=== PATIENT | male | born 1960 | race African-American/Black ===

== ENCOUNTER 2017-03-04 14:17 | Inpatient (IN) | payer OTHER ==
[~2017-03-04] VITALS: Ht 177.8 cm; Wt 72.6 kg
[2017-03-04] MEDS ORDERED: KETOROLAC TROMETHAMINE 60 MG/2 ML INJ. IM ONE (14:30)
[2017-03-04] MEDS ORDERED: HALOPERIDOL LACTATE 5 MG/ML VIAL. IM ONE (14:30)
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
--- NOTE | 2017-03-04 15:19 | RAD ---
CT of the head without contrast, 03/04/2017: History: Head and neck pain The ventricles are within normal limits in size. There is no shift of the midline structures. There is no evidence of acute intracranial hemorrhage or mass effect. There is mild mucosal thickening in the left maxillary sinus. IMPRESSION: No acute intracranial abnormality is detected. CT of the cervical spine without contrast, 03/04/2017: Noncontrast scans were obtained with multiplanar reconstructions produced. No fracture or dislocation is identified. There are minimal degenerative changes involving scattered facet joints. There are a few minimal scattered marginal spurs. There is mild posterior disc bulging at several levels including C3-4. No high-grade spinal stenosis is evident. There is mild calcific plaquing at the carotid bifurcations. IMPRESSION: 1. Mild multilevel degenerative change. 2. No acute bony abnormality is detected. PQRS Compliance Statement: One or more of the following individualized dose reduction techniques were utilized for this examination: 1. Automated exposure control 2. Adjustment of the mA and/or kV according to patient size 3. Use of iterative reconstruction technique
--- NOTE | 2017-03-04 15:22 | RAD ---
Indication back pain. Axial images through the lumbar spine were obtained and reformatted in the coronal and sagittal planes. A significant soft tissue finding in the visualized abdomen or pelvis is not seen. There are fractures of the left transverse processes of L1-L5 which appear acute. Vertebral height and alignment are well maintained. There is no evidence of acute fracture seen with the lumbar vertebral body segments. There is no significant bony canal narrowing. There is some slight disc bulging of the L4-5 and L5-S1 discs. IMPRESSION: Fractures, likely acute, involving the left transverse processes of L1-L5 PQRS Compliance Statement: One or more of the following individualized dose reduction techniques were utilized for this examination: 1. Automated exposure control 2. Adjustment of the mA and/or kV according to patient size 3. Use of iterative reconstruction technique
[2017-03-04] MEDS ORDERED: IV NORMAL SALINE 1000ML BAG 1,000 ML IV SCH (15:32)
[2017-03-04] MEDS ORDERED: FENTANYL PF 100 MCG/2 ML VIAL. IV PRN (15:45)
[2017-03-04] MEDS ORDERED: ONDANSETRON PF 4 MG/2 ML VIAL. IV ONE (15:45)
[2017-03-04 16:00] LABS: BASO # 0.1 x10^3/uL (0.0-0.2); BASO % 1 % (0-3); EOS % 2 % (0-3); HEMATOCRIT 36.8 % (39.0-53.0); HEMOGLOBIN 12.5 g/dL (13.0-17.5); LYMPH # 1.1 x10^3/uL (1.0-4.8); LYMPH % 19 % (24-48); MEAN CORPUSCULAR HEMOGLOBIN 33 pg (25-35); MEAN CORPUSCULAR HGB CONC 34 g/dL (31-37); MEAN CORPUSCULAR VOLUME 98 fL (79-100); MONO % 6 % (0-9); NEUT % 72 % (31-73); PLATELET COUNT 178 x10^3/uL (140-400); RED BLOOD COUNT 3.77 x10^6/uL (4.30-5.70); RED CELL DISTRIBUTION WIDTH 12.7 % (11.5-14.5); WHITE BLOOD COUNT 5.7 x10^3/uL (4.0-11.0)
[2017-03-04 16:02] LABS: BILIRUBIN,URINE NEGATIVE (NEG); GLUCOSE,URINE NEGATIVE (NEG); NITRITE,URINE NEGATIVE (NEG); PH,URINE 5.5; PROTEIN,URINE NEGATIVE (NEG-TRACE); UROBILINOGEN,URINE 0.2 mg/dL (0.2 mg/dL)
[2017-03-04 16:16] LABS: BACTERIA,URINE 0 /HPF (0-FEW); RBC,URINE 0 /HPF (0-2); WBC,URINE 0 /HPF (0-4)
[2017-03-04 16:23] LABS: CALCIUM 7.8 mg/dL (8.5-10.1); CREATININE 0.8 mg/dL (0.7-1.3); GFR 121.4; POTASSIUM 3.9 mmol/L (3.5-5.1)
[2017-03-04 16:29] LABS: ALBUMIN 3.2 g/dL (3.4-5.0); ALBUMIN/GLOBULIN RATIO 0.9 (1.0-1.7); TOTAL BILIRUBIN 0.3 mg/dL (0.2-1.0); TOTAL PROTEIN 6.6 g/dL (6.4-8.2)
[2017-03-04] MEDS ORDERED: IOHEXOL 300 MG/ML 75 ML VIAL IV ONE (16:30)
[2017-03-04] MEDS ORDERED: CONTRAST GIVEN MC PRN (16:30)
--- NOTE | 2017-03-04 16:38 | RAD ---
Pelvis with left hip, 3 views, 03/04/2017: History: Hip pain No fracture or dislocation is identified. The hip joints are fairly well-maintained. IMPRESSION: No acute pelvic or left hip abnormality is detected. Left femur, 2 views, 03/04/2017: No fracture or bony abnormality is detected. Minimal arterial calcifications are noted. IMPRESSION: No significant left femoral abnormality is identified.
--- NOTE | 2017-03-04 17:52 | RAD ---
PROCEDURE Chest, abdomen and pelvis CT with intravenous contrast; thoracic spine CT without contrast. HISTORY Fall. TECHNIQUE Computed tomographic images of the chest, abdomen and pelvis were obtained following the administration of 75 cc Omnipaque 300 intravenous contrast. Reconstructed images of the thoracic spine were also obtained. One or more of the following individualized dose reduction techniques were utilized for this examination: 1. Automated exposure control; 2. Adjustment of the mA and/or kV according to patient size; 3. Use of iterative reconstruction technique. COMPARISON None. FINDINGS Chest: There is no pneumothorax or plural effusion. There is posterior dependent atelectasis. There is no infiltrate. There is a 3 mm nodular opacity along the right pleural fissure, likely a benign intrafissural lymph node. There is also a 3 mm nodular opacity within the medial left upper lobe and 6 mm and 3 mm pleural-based nodular opacities within the lateral right upper lobe. The heart is normal in size. There is coronary artery atherosclerosis. There is no aortic dissection. No pathologically enlarged lymph node is seen. There are few calcified granulomas. Abdomen pelvis: There may be a tiny cyst within the hepatic dome. There is a 1.3 cm hypodense lesion along the falciform ligament, slightly more rounded and configuration for fatty infiltration and possibly due to a cyst or hemangioma. The gallbladder, pancreas, spleen and adrenal glands are unremarkable. There are several small renal cortical cysts. No abnormally thickened or dilated loop of bowel is seen. The bladder is unremarkable. There are displaced left 1st, 2nd, 3rd, 4th and 5th transverse process fractures. There is slight asymmetric enlargement of the left ileus psoas muscle likely due to a small retroperitoneal hemorrhage. There is mild endplate remodeling and facet arthropathy and there are mild disc bulges at multiple lumbar levels. This results in bilateral foraminal stenosis at L4-L5 and L5-S1. Thoracic spine: There is minimal anterior wedging of T12, likely developmental or degenerative. There is endplate remodeling and Schmorl's node formation at multiple levels. No acute thoracic fracture is seen. There is no suspicious osseous lesion. There is no severe thoracic foraminal or central canal stenosis. IMPRESSION 1. Displaced left 1st, 2nd, 3rd, 4th and 5th transverse process fractures with associated enlarged left ileus psoas muscle with overlying stranding likely due to a small retroperitoneal hemorrhage. 2. Multiple tiny cysts within the kidneys. 3. 1.3 cm rounded hypodense lesion within the the right hepatic lobe along the falciform ligament, not typical in appearance for fatty infiltration. In the absence of known malignancy, this is likely a cyst or hemangioma. There may also be a tiny cyst within the hepatic dome. 4. Multilevel degenerative change within the thoracic and lumbar spine. 5. 3 mm nodular opacity within the left upper lobe and 3 mm and 5 mm pleural-based nodular opacities within the right upper lobe. Followup can be performed according to Fleischner society criteria. In a low risk patient: <4mm- No follow up required. >4-6mm- 12 month follow up, if unchanged, no further follow up. >6-8mm- 6-12 month follow up, then at 18-24 months if no change. >8mm- 3, 9, 24 month follow up or consideration of PET/CT. In a high risk patient: <4mm- 12 month follow up, if unchanged then no further follow up. >4-6mm- 6-12 month follow up, then at 18-24 months if no change. >6-8mm- 3-6 month follow up, then at 9-12 months and 24 months if no change. >8mm- 3, 9, 24 month follow up or consideration of PET/CT. Electronically signed by: Libia Ricci (Mar 04, 2017 17:51:20)
[2017-03-04] MEDS ORDERED: LORAZEPAM 2 MG/ML VIAL. IV PRN ×2 (18:45)
[2017-03-04] MEDS ORDERED: HALOPERIDOL LACTATE 5 MG/ML VIAL. IVP PRN (18:45)
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
[2017-03-04] MEDS ORDERED: ACETAMINOPHEN 325 MG TABLET. PO PRN (19:00)
[2017-03-04] MEDS ORDERED: MORPHINE IR 15 MG TABLET PO PRN (19:00)
[2017-03-04] MEDS ORDERED: KETOROLAC 15 MG/ML VIAL. IV PRN (19:00)
[2017-03-04] MEDS: MULTIVIT INFUSN,ADULT 4,VIT K 10 ML, THIAMINE 100 MG, FOLIC ACID 1 MG in IV NORMAL SALI... IV SCH (19:15)
[2017-03-04 19:22] VITALS: BP 125/83
[2017-03-04] MEDS ORDERED: ENOXAPARIN 40 MG/0.4 ML SYRINGE. SQ SCH (21:00)
[2017-03-04] MEDS: LORAZEPAM 1 MG TABLET. PO SCH (21:00)
[2017-03-04 23:29] VITALS: BP 135/86
[2017-03-05 03:22] VITALS: BP 146/89
[2017-03-05 05:18] LABS: BASO # 0.1 x10^3/uL (0.0-0.2); BASO % 2 % (0-3); EOS % 4 % (0-3); HEMATOCRIT 35.7 % (39.0-53.0); HEMOGLOBIN 12.1 g/dL (13.0-17.5); LYMPH # 1.1 x10^3/uL (1.0-4.8); LYMPH % 26 % (24-48); MEAN CORPUSCULAR HEMOGLOBIN 33 pg (25-35); MEAN CORPUSCULAR HGB CONC 34 g/dL (31-37); MEAN CORPUSCULAR VOLUME 98 fL (79-100); MONO % 7 % (0-9); NEUT % 62 % (31-73); PLATELET COUNT 163 x10^3/uL (140-400); RED BLOOD COUNT 3.64 x10^6/uL (4.30-5.70); RED CELL DISTRIBUTION WIDTH 12.5 % (11.5-14.5); WHITE BLOOD COUNT 4.4 x10^3/uL (4.0-11.0)
[2017-03-05 05:25] LABS: INR 1.2 (0.8-1.1); PROTHROMBIN TIME PATIENT 14.1 SEC (11.7-14.0)
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
[2017-03-05 07:00] VITALS: BP 163/97
[2017-03-05] MEDS: MULTIVIT INFUSN,ADULT 4,VIT K 10 ML, THIAMINE 100 MG, FOLIC ACID 1 MG in IV NORMAL SALI... IV SCH (08:36)
[2017-03-05] MEDS: LORAZEPAM 1 MG TABLET. PO SCH ×2 (08:36→22:18)
[2017-03-05] MEDS ORDERED: HYDROCODONE/APAP 10/325 TABLET. PO PRN (10:15)
[2017-03-05 11:00] VITALS: BP 145/86
[2017-03-05] MEDS ORDERED: ONDANSETRON PF 4 MG/2 ML VIAL. IV PRN (11:00)
[2017-03-05 11:05] LABS: ALBUMIN 2.9 g/dL (3.4-5.0); ALBUMIN/GLOBULIN RATIO 0.9 (1.0-1.7); CREATININE 0.9 mg/dL (0.7-1.3); POTASSIUM 3.6 mmol/L (3.5-5.1); TOTAL BILIRUBIN 0.7 mg/dL (0.2-1.0); TOTAL PROTEIN 6.1 g/dL (6.4-8.2)
[2017-03-05] MEDS: CYCLOBENZAPRINE 10 MG TABLET. PO SCH ×2 (11:32→22:17)
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
--- NOTE | 2017-03-05 13:13 | PDOC ---
PROGRESS NOTES Chief Complaint Chief Complaint Acute etoh intoxication toxic encephalopathy trauma, fall, broken mult transverse processes, no sx one small liver lesion on CT, cyst vs. hemagioma small nodules 3-5mm lung nodules on CT plan: fu with sx , dr. Muse pain control back brace, walker fOr pt PTot ivf ativan prn hope dc tmr History of Present Illness History of Present Illness back pain Vitals Vitals Vital Signs Date Time Temp Pulse Resp B/P Pulse Ox O2 Delivery O2 Flow Rate FiO2 03/05/17 11:00 98.1 56 18 145/86 99 Room Air 98.1 Physical Exam General: Alert, mild distress, moderate distress, Other (confused, ) Heart: Regular rate, Normal S1 Lungs: Clear Abdomen: Normal bowel sounds, Soft Extremities: No clubbing, No cyanosis Skin: No rashes Labs LABS Laboratory Tests Test 03/04/17 15:41 03/05/17 04:20 White Blood Count 5.7x10^3/uL (4.0-11.0) 4.4x10^3/uL (4.0-11.0) Red Blood Count 3.77x10^6/uL (4.30-5.70) 3.64x10^6/uL (4.30-5.70) Hemoglobin 12.5g/dL (13.0-17.5) 12.1g/dL (13.0-17.5) Hematocrit 36.8% (39.0-53.0) 35.7% (39.0-53.0) Mean Corpuscular Volume 98fL (79-100) 98fL (79-100) Mean Corpuscular Hemoglobin 33pg (25-35) 33pg (25-35) Mean Corpuscular Hemoglobin Concent 34g/dL (31-37) 34g/dL (31-37) Red Cell Distribution Width 12.7% (11.5-14.5) 12.5% (11.5-14.5) Platelet Count 178x10^3/uL (140-400) 163x10^3/uL (140-400) Neutrophils (%) (Auto) 72% (31-73) 62% (31-73) Lymphocytes (%) (Auto) 19% (24-48) 26% (24-48) Monocytes (%) (Auto) 6% (0-9) 7% (0-9) Eosinophils (%) (Auto) 2% (0-3) 4% (0-3) Basophils (%) (Auto) 1% (0-3) 2% (0-3) Neutrophils # (Auto) 4.1x10^3uL (1.8-7.7) 2.7x10^3uL (1.8-7.7) Lymphocytes # (Auto) 1.1x10^3/uL (1.0-4.8) 1.1x10^3/uL (1.0-4.8) Monocytes # (Auto) 0.3x10^3/uL (0.0-1.1) 0.3x10^3/uL (0.0-1.1) Eosinophils # (Auto) 0.1x10^3/uL (0.0-0.7) 0.2x10^3/uL (0.0-0.7) Basophils # (Auto) 0.1x10^3/uL (0.0-0.2) 0.1x10^3/uL (0.0-0.2) Urine Collection Type Void Urine Color Yellow Urine Clarity Clear Urine pH 5.5 Urine Specific Baker 1.010 Urine Protein Negativemg/dL (NEG-TRACE) Urine Glucose (UA) Negativemg/dL (NEG) Urine Ketones (Stick) Negativemg/dL (NEG) Urine Blood Negative (NEG) Urine Nitrite Negative (NEG) Urine Bilirubin Negative (NEG) Urine Urobilinogen Dipstick 0.2mg/dL (0.2 mg/dL) Urine Leukocyte Esterase Negative (NEG) Urine RBC 0/HPF (0-2) Urine WBC 0/HPF (0-4) Urine Squamous Epithelial Cells None/LPF Urine Bacteria 0/HPF (0-FEW) Urine Mucus Mod/LPF Sodium Level 141mmol/L (136-145) 143mmol/L (136-145) Potassium Level 3.9mmol/L (3.5-5.1) 3.6mmol/L (3.5-5.1) Chloride Level 105mmol/L (98-107) 109mmol/L (98-107) Carbon Dioxide Level 24mmol/L (21-32) 24mmol/L (21-32) Anion Gap 12 (6-14) 10 (6-14) Blood Urea Nitrogen 14mg/dL (8-26) 15mg/dL (8-26) Creatinine 0.8mg/dL (0.7-1.3) 0.9mg/dL (0.7-1.3) Estimated GFR (Cockcroft-Gault) 121.4 106.0 BUN/Creatinine Ratio 18 (6-20) 17 (6-20) Glucose Level 96mg/dL (70-99) 114mg/dL (70-99) Calcium Level 7.8mg/dL (8.5-10.1) 8.0mg/dL (8.5-10.1) Total Bilirubin 0.3mg/dL (0.2-1.0) 0.7mg/dL (0.2-1.0) Aspartate Amino Transf (AST/SGOT) 69U/L (15-37) 65U/L (15-37) Alanine Aminotransferase (ALT/SGPT) 51U/L (16-63) 45U/L (16-63) Alkaline Phosphatase 74U/L (46-116) 78U/L (46-116) Total Protein 6.6g/dL (6.4-8.2) 6.1g/dL (6.4-8.2) Albumin 3.2g/dL (3.4-5.0) 2.9g/dL (3.4-5.0) Albumin/Globulin Ratio 0.9 (1.0-1.7) 0.9 (1.0-1.7) Ethyl Alcohol Level 318mg/dL (0-10) Prothrombin Time 14.1SEC (11.7-14.0) Prothromb Time International Ratio 1.2 (0.8-1.1) Review of Systems Review of Systems no fever, chills, sob or chest pain Assessment and Plan Assessmemt and Plan Problems Medical Problems: (1) Alcohol intoxication Status: Acute (2) Mild protein malnutrition Status: Acute (3) Multiple transverse process fractures Status: Acute Problems: Comment Review of Relevant I have reviewed the following items connor (where applicable) has been applied. Labs Laboratory Tests Test 03/04/17 15:41 03/05/17 04:20 White Blood Count 5.7x10^3/uL (4.0-11.0) 4.4x10^3/uL (4.0-11.0) Red Blood Count 3.77x10^6/uL (4.30-5.70) 3.64x10^6/uL (4.30-5.70) Hemoglobin 12.5g/dL (13.0-17.5) 12.1g/dL (13.0-17.5) Hematocrit 36.8% (39.0-53.0) 35.7% (39.0-53.0) Mean Corpuscular Volume 98fL (79-100) 98fL (79-100) Mean Corpuscular Hemoglobin 33pg (25-35) 33pg (25-35) Mean Corpuscular Hemoglobin Concent 34g/dL (31-37) 34g/dL (31-37) Red Cell Distribution Width 12.7% (11.5-14.5) 12.5% (11.5-14.5) Platelet Count 178x10^3/uL (140-400) 163x10^3/uL (140-400) Neutrophils (%) (Auto) 72% (31-73) 62% (31-73) Lymphocytes (%) (Auto) 19% (24-48) 26% (24-48) Monocytes (%) (Auto) 6% (0-9) 7% (0-9) Eosinophils (%) (Auto) 2% (0-3) 4% (0-3) Basophils (%) (Auto) 1% (0-3) 2% (0-3) Neutrophils # (Auto) 4.1x10^3uL (1.8-7.7) 2.7x10^3uL (1.8-7.7) Lymphocytes # (Auto) 1.1x10^3/uL (1.0-4.8) 1.1x10^3/uL (1.0-4.8) Monocytes # (Auto) 0.3x10^3/uL (0.0-1.1) 0.3x10^3/uL (0.0-1.1) Eosinophils # (Auto) 0.1x10^3/uL (0.0-0.7) 0.2x10^3/uL (0.0-0.7) Basophils # (Auto) 0.1x10^3/uL (0.0-0.2) 0.1x10^3/uL (0.0-0.2) Urine Collection Type Void Urine Color Yellow Urine Clarity Clear Urine pH 5.5 Urine Specific Baker 1.010 Urine Protein Negativemg/dL (NEG-TRACE) Urine Glucose (UA) Negativemg/dL (NEG) Urine Ketones (Stick) Negativemg/dL (NEG) Urine Blood Negative (NEG) Urine Nitrite Negative (NEG) Urine Bilirubin Negative (NEG) Urine Urobilinogen Dipstick 0.2mg/dL (0.2 mg/dL) Urine Leukocyte Esterase Negative (NEG) Urine RBC 0/HPF (0-2) Urine WBC 0/HPF (0-4) Urine Squamous Epithelial Cells None/LPF Urine Bacteria 0/HPF (0-FEW) Urine Mucus Mod/LPF Sodium Level 141mmol/L (136-145) 143mmol/L (136-145) Potassium Level 3.9mmol/L (3.5-5.1) 3.6mmol/L (3.5-5.1) Chloride Level 105mmol/L (98-107) 109mmol/L (98-107) Carbon Dioxide Level 24mmol/L (21-32) 24mmol/L (21-32) Anion Gap 12 (6-14) 10 (6-14) Blood Urea Nitrogen 14mg/dL (8-26) 15mg/dL (8-26) Creatinine 0.8mg/dL (0.7-1.3) 0.9mg/dL (0.7-1.3) Estimated GFR (Cockcroft-Gault) 121.4 106.0 BUN/Creatinine Ratio 18 (6-20) 17 (6-20) Glucose Level 96mg/dL (70-99) 114mg/dL (70-99) Calcium Level 7.8mg/dL (8.5-10.1) 8.0mg/dL (8.5-10.1) Total Bilirubin 0.3mg/dL (0.2-1.0) 0.7mg/dL (0.2-1.0) Aspartate Amino Transf (AST/SGOT) 69U/L (15-37) 65U/L (15-37) Alanine Aminotransferase (ALT/SGPT) 51U/L (16-63) 45U/L (16-63) Alkaline Phosphatase 74U/L (46-116) 78U/L (46-116) Total Protein 6.6g/dL (6.4-8.2) 6.1g/dL (6.4-8.2) Albumin 3.2g/dL (3.4-5.0) 2.9g/dL (3.4-5.0) Albumin/Globulin Ratio 0.9 (1.0-1.7) 0.9 (1.0-1.7) Ethyl Alcohol Level 318mg/dL (0-10) Prothrombin Time 14.1SEC (11.7-14.0) Prothromb Time International Ratio 1.2 (0.8-1.1) Laboratory Tests Test 03/04/17 15:41 03/05/17 04:20 White Blood Count 5.7x10^3/uL (4.0-11.0) 4.4x10^3/uL (4.0-11.0) Red Blood Count 3.77x10^6/uL (4.30-5.70) 3.64x10^6/uL (4.30-5.70) Hemoglobin 12.5g/dL (13.0-17.5) 12.1g/dL (13.0-17.5) Hematocrit 36.8% (39.0-53.0) 35.7% (39.0-53.0) Mean Corpuscular Volume 98fL (79-100) 98fL (79-100) Mean Corpuscular Hemoglobin 33pg (25-35) 33pg (25-35) Mean Corpuscular Hemoglobin Concent 34g/dL (31-37) 34g/dL (31-37) Red Cell Distribution Width 12.7% (11.5-14.5) 12.5% (11.5-14.5) Platelet Count 178x10^3/uL (140-400) 163x10^3/uL (140-400) Neutrophils (%) (Auto) 72% (31-73) 62% (31-73) Lymphocytes (%) (Auto) 19% (24-48) 26% (24-48) Monocytes (%) (Auto) 6% (0-9) 7% (0-9) Eosinophils (%) (Auto) 2% (0-3) 4% (0-3) Basophils (%) (Auto) 1% (0-3) 2% (0-3) Neutrophils # (Auto) 4.1x10^3uL (1.8-7.7) 2.7x10^3uL (1.8-7.7) Lymphocytes # (Auto) 1.1x10^3/uL (1.0-4.8) 1.1x10^3/uL (1.0-4.8) Monocytes # (Auto) 0.3x10^3/uL (0.0-1.1) 0.3x10^3/uL (0.0-1.1) Eosinophils # (Auto) 0.1x10^3/uL (0.0-0.7) 0.2x10^3/uL (0.0-0.7) Basophils # (Auto) 0.1x10^3/uL (0.0-0.2) 0.1x10^3/uL (0.0-0.2) Urine Collection Type Void Urine Color Yellow Urine Clarity Clear Urine pH 5.5 Urine Specific Baker 1.010 Urine Protein Negativemg/dL (NEG-TRACE) Urine Glucose (UA) Negativemg/dL (NEG) Urine Ketones (Stick) Negativemg/dL (NEG) Urine Blood Negative (NEG) Urine Nitrite Negative (NEG) Urine Bilirubin Negative (NEG) Urine Urobilinogen Dipstick 0.2mg/dL (0.2 mg/dL) Urine Leukocyte Esterase Negative (NEG) Urine RBC 0/HPF (0-2) Urine WBC 0/HPF (0-4) Urine Squamous Epithelial Cells None/LPF Urine Bacteria 0/HPF (0-FEW) Urine Mucus Mod/LPF Sodium Level 141mmol/L (136-145) 143mmol/L (136-145) Potassium Level 3.9mmol/L (3.5-5.1) 3.6mmol/L (3.5-5.1) Chloride Level 105mmol/L (98-107) 109mmol/L (98-107) Carbon Dioxide Level 24mmol/L (21-32) 24mmol/L (21-32) Anion Gap 12 (6-14) 10 (6-14) Blood Urea Nitrogen 14mg/dL (8-26) 15mg/dL (8-26) Creatinine 0.8mg/dL (0.7-1.3) 0.9mg/dL (0.7-1.3) Estimated GFR (Cockcroft-Gault) 121.4 106.0 BUN/Creatinine Ratio 18 (6-20) 17 (6-20) Glucose Level 96mg/dL (70-99) 114mg/dL (70-99) Calcium Level 7.8mg/dL (8.5-10.1) 8.0mg/dL (8.5-10.1) Total Bilirubin 0.3mg/dL (0.2-1.0) 0.7mg/dL (0.2-1.0) Aspartate Amino Transf (AST/SGOT) 69U/L (15-37) 65U/L (15-37) Alanine Aminotransferase (ALT/SGPT) 51U/L (16-63) 45U/L (16-63) Alkaline Phosphatase 74U/L (46-116) 78U/L (46-116) Total Protein 6.6g/dL (6.4-8.2) 6.1g/dL (6.4-8.2) Albumin 3.2g/dL (3.4-5.0) 2.9g/dL (3.4-5.0) Albumin/Globulin Ratio 0.9 (1.0-1.7) 0.9 (1.0-1.7) Ethyl Alcohol Level 318mg/dL (0-10) Prothrombin Time 14.1SEC (11.7-14.0) Prothromb Time International Ratio 1.2 (0.8-1.1) Medications Current Medications Haloperidol Lactate (Haldol) 5 mg 1X ONCE IM Last administered on 03/04/17t 15 :15; Start 03/04/17 at 14:30; Stop 03/04/17 at 14:39; Status DC Ketorolac Tromethamine 60 mg 60 mg 1X ONCE IM Last administered on 03/04/17 15:15; Start 03/04/17 at 14:30; Stop 03/04/17 at 14:39; Status DC Sodium Chloride (Iv Sodium Chloride 0.9% 1000ml Bag) 1,000 ml @ 100 mls/hr Q10H IV Last administered on 03/04/17 19:16; Start 03/04/17 at 15:32; Stop at 01:31; Status DC Fentanyl Citrate (Fentanyl 2ml Vial) 50 mcg PRN Q15MIN PRN IV PAIN GREATER THAN 3/10; Start 03/04/17 at 15:45; Stop 03/05/17 at 15:44 Ondansetron HCl (Zofran) 4 mg 1X ONCE IV ; Start 03/04/17 at 15:45; Stop at 15:46; Status DC Iohexol (Omnipaque 300 Mg/ml) 75 ml 1X ONCE IV ; Start 03/04/17 at 16:30; Stop 03/04/17 at 16:31; Status DC Info 1 each 1 each PRN DAILY PRN MC SEE COMMENTS; Start 03/04/17 at 16:30; Stop 03/06/17 at 16:29 Multivitamins/ Thiamine HCl/ Folic Acid/Sodium Chloride (Infuvite Adult/ Iv Sodium Chloride 0.9% 1000ml Bag) 1,011.2 ml @ 100 mls/ hr DAILY IV Last administered on 03/05/17 08:36; Start 03/04/17 at 19:00; Stop 03/10/17 at 18:59 Lorazepam (Ativan) 2 mg BID PO Last administered on 03/05/17 08:36; Start at 21:00; Stop 03/06/17 at 21:01 Multivitamins (Thera M Plus) 1 tab DAILY PO ; Start 03/10/17 at 09:00 Folic Acid (Folic Acid) 1 mg DAILY PO ; Start 03/10/17 at 09:00 Lorazepam (Ativan) 2 mg PRN Q1HR PRN IV For CIWA 8-14; Start 03/04/17 at 18:45 Lorazepam (Ativan) 4 mg PRN Q1HR PRN IV For CIWA 15 or greater; Start 03/04/17 at 18:45 Haloperidol Lactate (Haldol) 5 mg PRN Q4HRS PRN IVP Hallucinatns,Confusn, Delirium; Start 03/04/17 at 18:45 Enoxaparin Sodium (Lovenox Per Pharmacy Prophylaxis Dosing) 1 each PRN DAILY PRN MC SEE COMMENTS; Start 03/04/17 at 18:45 Ketorolac Tromethamine (Toradol) 15 mg PRN Q6HRS PRN IV PAIN; Start 03/04/17 at 19:00; Stop 03/09/17 at 18:59 Morphine Sulfate (Morphine Ir) 15 mg Q6HRS PRN PO PAIN Last administered on 03:49; Start 03/04/17 at 19:00 Acetaminophen (Tylenol) 650 mg PRN Q6HRS PRN PO pain; Start 03/04/17 at 19:00 Enoxaparin Sodium (Lovenox 40mg Syringe) 40 mg Q24H SQ ; Start 03/04/17 at 21:00 ; Stop 03/05/17 at 10:24; Status DC Acetaminophen/ Hydrocodone Bitart (Lortab 10/325) 1 tab PRN Q6HRS PRN PO PAIN; Start 03/05/17 at 10:15 Cyclobenzaprine HCl (Flexeril) 10 mg Q8HRS PO Last administered on 03/05/17 11 :32; Start 03/05/17 at 12:00 Ondansetron HCl (Zofran) 4 mg PRN Q6HRS PRN IV NAUSEA/VOMITING; Start 03/05/17 at 11:00 Active Scripts Active Reported No Known Medications Prior To Admisstion (Info) Each 1 Each Vitals/I & O Vital Sign - Last 24 Hours 03/04/17 03/04/17 03/04/17 03/04/17 14:17 16:00 19:22 20:30 Temp 98.8 98.4 98.8 98.4 Pulse 96 78 63 Resp 18 B/P 153/89 149/65 125/83 Pulse Ox 99 97 97 O2 Delivery Room Air Room Air Room Air 03/04/17 03/05/17 03/05/17 03/05/17 23:29 03:22 03:49 04:50 Temp 98.5 98.3 98.5 98.3 Pulse 61 64 Resp 18 18 B/P 135/86 146/89 Pulse Ox 97 97 97 97 O2 Delivery Room Air Room Air Room Air Room Air 03/05/17 03/05/17 07:00 11:00 Temp 98.4 98.1 98.4 98.1 Pulse 64 56 Resp 18 18 B/P 163/97 145/86 Pulse Ox 96 99 O2 Delivery Room Air Room Air Intake and Output 03/04/17 03/04/17 03/05/17 15:00 23:00 07:00 Intake Total 1070 ml Output Total 950 ml Balance 120 ml HERMINIO RODRIGUEZ MD Mar 05, 2017 13:13
[2017-03-05 15:00] VITALS: BP 131/73
[2017-03-05 19:20] VITALS: BP 141/82
[2017-03-05 23:31] VITALS: BP 135/85
[2017-03-06 03:03] VITALS: BP 136/82
[2017-03-06 05:28] LABS: BASO % 1 % (0-3); EOS % 7 % (0-3); HEMATOCRIT 32.2 % (39.0-53.0); LYMPH % 30 % (24-48); MEAN CORPUSCULAR HEMOGLOBIN 34 pg (25-35); MEAN CORPUSCULAR HGB CONC 34 g/dL (31-37); MEAN CORPUSCULAR VOLUME 99 fL (79-100); MONO % 11 % (0-9); NEUT % 51 % (31-73); PLATELET COUNT 130 x10^3/uL (140-400); RED BLOOD COUNT 3.27 x10^6/uL (4.30-5.70); RED CELL DISTRIBUTION WIDTH 12.6 % (11.5-14.5); WHITE BLOOD COUNT 3.2 x10^3/uL (4.0-11.0)
[2017-03-06 05:43] LABS: CALCIUM 7.9 mg/dL (8.5-10.1); CREATININE 0.8 mg/dL (0.7-1.3); GFR 121.4; POTASSIUM 3.9 mmol/L (3.5-5.1)
[2017-03-06] MEDS: CYCLOBENZAPRINE 10 MG TABLET. PO SCH ×2 (06:18→13:48)
[2017-03-06 07:00] VITALS: BP 169/97
[2017-03-06] MEDS: MULTIVIT INFUSN,ADULT 4,VIT K 10 ML, THIAMINE 100 MG, FOLIC ACID 1 MG in IV NORMAL SALI... IV SCH (08:07)
[2017-03-06] MEDS: LORAZEPAM 1 MG TABLET. PO SCH (08:07)
[2017-03-06] MEDS ORDERED: MULT1TAB90 PO (10:36)
[2017-03-06] MEDS ORDERED: MORP15TA PO (10:36)
[2017-03-06] MEDS ORDERED: CYCL10TA2 PO (10:36)
[2017-03-06 11:00] VITALS: BP 143/91
--- NOTE | 2017-03-06 12:53 | PDOC3 ---
Discharge Summary [facility] Date of Admission: Mar 04, 2017 Discharge Date: Mar 06, 2017 Admitting Diagnosis Acute etoh intoxication toxic encephalopathy trauma, fall, broken mult transverse processes, no sx one small liver lesion on CT, cyst vs. hemagioma small nodules 3-5mm lung nodules on CT pancytopenia 2/2 alcoholic hepatitis likely Problems: Final Diagnosis CONSULTS dr. Almaz bartlett Brief Hospital Course Mr. Mckeon is a 57 old M, heavy drinker, presented with toxic alcoholic encephalopathy, post fall to ER. was found multiple transverse processes fx. no sx needed. pt still has back pain, able to walk with back brace on and a walker. dc today with the brace and a walker. dc time 35min General: Alert, mild distress Heart: Regular rate, Normal S1 Lungs: Clear Abdomen: Normal bowel sounds, Soft Extremities: No clubbing, No cyanosis Skin: No rashes Problems: Disposition home CONDITION AT DISCHARGE: Stable Diet regular Scheduled Cyclobenzaprine Hcl (Cyclobenzaprine Hcl) 10 MG PO Q8HRS Multivits,Ca,Minerals/Iron/Fa (Thera-M Tablet) 1 TAB PO DAILY Scheduled PRN Morphine Sulfate (Morphine Sulfate) 15 MG PO Q6HRS PRN PRN PAIN Discontinued Medications Info (No Known Medications Prior To Admisstion) 1 EACH MC (Reported) Follow Up pcp in 2 weeks HERMINIO RODRIGUEZ MD Mar 06, 2017 12:53
[2017-03-06] MEDS ORDERED: LORAZEPAM 1 MG TABLET. PO SCH (21:00)
[2017-03-10] MEDS ORDERED: FOLIC ACID 1 MG TABLET. PO SCH (09:00)
[2017-03-10] MEDS ORDERED: MULTIVITAMIN with MINERAL TABLET. PO SCH (09:00)
== END 2017-03-06 14:40 | disposition home or self-care (01) | DRG 56 ==
LOC: ER 14:17 → 4 NORTH 15:38
PROVIDERS: ADMIT Internal Medicine; ATTEND Internal Medicine
DX: G31.2 Degeneration of nervous system due to alcohol (principal); G92 Toxic encephalopathy; S32.019A Unspecified fracture of first lumbar vertebra, initial encounter for closed fracture; E44.1 Mild protein-calorie malnutrition; D61.818 Other pancytopenia; S32.029A Unspecified fracture of second lumbar vertebra, initial encounter for closed fracture; S32.039A Unspecified fracture of third lumbar vertebra, initial encounter for closed fracture; S32.049A Unspecified fracture of fourth lumbar vertebra, initial encounter for closed fracture; S32.059A Unspecified fracture of fifth lumbar vertebra, initial encounter for closed fracture; F10.129 Alcohol abuse with intoxication, unspecified; F32.9 Major depressive disorder, single episode, unspecified; K70.10 Alcoholic hepatitis without ascites; M54.30 Sciatica, unspecified side; F14.90 Cocaine use, unspecified, uncomplicated; R91.8 Other nonspecific abnormal finding of lung field; M51.36 Other intervertebral disc degeneration, lumbar region; M54.2 Cervicalgia; R51 Headache; W19.XXXA Unspecified fall, initial encounter; Y93.89 Activity, other specified; Y92.89 Other specified places as the place of occurrence of the external cause; Y99.8 Other external cause status; Z90.49 Acquired absence of other specified parts of digestive tract; Z79.899 Other long term (current) drug therapy; Z79.1 Long term (current) use of non-steroidal anti-inflammatories (NSAID); Z68.23 Body mass index [BMI] 23.0-23.9, adult; N28.1 Cyst of kidney, acquired; S23.3XXA Sprain of ligaments of thoracic spine, initial encounter; S33.5XXA Sprain of ligaments of lumbar spine, initial encounter; D18.09 Hemangioma of other sites
CPT/HCPCS: 36415; 70450; 71260; 72125; 72131; 73502; 73552; 74177; 80048; 80053; 81001; 85027; 85610; 96372; G0480; J1630; J1885; J7030; 99285-25

== ENCOUNTER 2018-06-20 16:47 | Emergency (ER) | payer OTHER ==
[2018-06-20] MEDS: HYDROcodone/APAP 5/325MG 1 TAB TABLET PO (18:05)
== END 2018-06-20 19:03 | disposition home or self-care (01) ==
LOC: ER 16:47
DX: S29.9XXA Unspecified injury of thorax, initial encounter (principal); F20.9 Schizophrenia, unspecified; W18.39XA Other fall on same level, initial encounter; Y93.89 Activity, other specified; Y99.8 Other external cause status; Y92.89 Other specified places as the place of occurrence of the external cause
CPT/HCPCS: 71101; 99284

== ENCOUNTER 2021-06-11 22:30 | Emergency (ER) | payer SELFPAY ==
[~2021-06-11] VITALS: Ht 188 cm; Wt 90.9 kg
[2021-06-11 22:30] VITALS: BP 153/97
[~2021-06-11 22:30] MED LIST: CYCL10TA2 PO; HYDR-3164 PO; MORP15TA PO; MULT1TAB92 PO; OXYC1TAB15 PO
--- NOTE | 2021-06-11 23:04 | ED.ADGEN ---
Past Medical History Past Medical History: Depression, Schizophrenia Past Surgical History: Other Additional Past Surgical Histo: unknown Smoking Status: Unknown if ever smoked Alcohol Use: Heavy Drug Use: None General Adult EDM: Chief Complaint: ALCOHOL INTOXICATION HPI: HPI: Patient is a 61 year old male brought in by EMS. Patient was found laying in the street intoxicated. Was unable to ambulate by himself. It appears patient has fallen and has a hematoma on his head. On arrival patient is covered in his own feces down his legs. Patient is stating he does not want to be seen and is calling his . Review of Systems: Review of Systems: All other systems within normal limits except for as noted in the HPI Allergies: Allergies: Allergies Coded Allergies Type Severity Reaction Last Updated Verified No Known Drug Allergies 10/08/18 No Physical Exam: PE: Constitutional: Well developed, well nourished, intoxicated, has feces on bilateral leg HENT: Normocephalic, small left upper occipital hematoma, bilateral external ears normal, nose normal. [] Eyes: PERRLA, conjunctiva normal, no discharge. [] Neck: No rigidity, supple, no stridor. [] Cardiovascular: Regular rate and rhythm, brisk cap refill [] Lungs & Thorax: Non labored symmetric respirations, no tachypnea or respiratory distress [] Abdomen: Soft, nondistended. Skin: Warm, dry, no erythema, no rash. [] Back: Unremarkable Extremities: No deformities, range of motion grossly intact, no lower extremity edema [] Neurologic: Alert and oriented X 3, no focal deficits noted. [] Psychologic: Argumentative, speaking in full sentences Current Patient Data: Vital Signs: Vital Signs Date Time Temp Pulse Resp B/P (MAP) Pulse Ox O2 Delivery O2 Flow Rate FiO2 06/11/21 22:30 98.6 93 18 153/97 97 Room Air 98.6 EKG: EKG: [] Heart Score: C/O Chest Pain: N/A Risk Factors: Risk Factors: DM, Current or recent (<one month) smoker, HTN, HLP, family history of CAD, obesity. Risk Scores: Score 0 - 3: 2.5% MACE over next 6 weeks - Discharge Home Score 4 - 6: 20.3% MACE over next 6 weeks - Admit for Clinical Observation Score 7 - 10: 72.7% MACE over next 6 weeks - Early Invasive Strategies Radiology/Procedures: Radiology/Procedures: [] Course & Med Decision Making: Course & Med Decision Making Patient awake and easily agitated, ambulates to the bathroom with steady gait. Refusing any work-up. Does not appear to have any focal deficits. Patient ambulate about emergency department causing commotion. Going to restroom frequently. Patient's legs are still covered in feces and is refusing to clean them and is stating that he wants to leave because "this place stinks" Dragon Disclaimer: Zahra Disclaimer: This electronic medical record was generated, in whole or in part, using a voice recognition dictation system. Departure Departure Impression: Primary Impression: Alcohol intoxication Disposition: HOME / SELF CARE / HOMELESS Condition: STABLE Referrals: NO PCP (PCP) Patient Instructions: Alcohol Intoxication NUPUR VOGEL MD Jun 11, 2021 23:04
== END 2021-06-12 01:00 | disposition home or self-care (01) ==
LOC: ER 22:30
DX: S00.03XA Contusion of scalp, initial encounter (principal); F20.9 Schizophrenia, unspecified; F10.229 Alcohol dependence with intoxication, unspecified; Y90.9 Presence of alcohol in blood, level not specified; W18.39XA Other fall on same level, initial encounter; Y93.89 Activity, other specified; Y92.89 Other specified places as the place of occurrence of the external cause; Y99.8 Other external cause status
CPT/HCPCS: 99283